=== PATIENT | male | born 1990 | race American Indian/Alaskan Native ===

== ENCOUNTER 2019-10-14 07:50 | Emergency (ER) | payer SELFPAY ==
[2019-10-14 07:57] VITALS: BP 112/68
[2019-10-14] MEDS ORDERED: IBUPROFEN 600 MG TAB PO ONE (08:46)
--- NOTE | 2019-10-14 08:49 | Emergency Department Report ---
ED Male HPI - General Chief complaint: Urogenital-Male Stated complaint: TESTICULAR PAIN Time Seen by Provider: 10/14/19 08:44 Source: patient Mode of arrival: Ambulatory Limitations: No Limitations - History of Present Illness Initial comments: 28-year-old -[place] male presents to the emergency room complaining of right testicular pain for 2 days. Patient denies any fever patient denies any dysuria patient denies any hematuria patient denies any discharge. Patient has a past medical history of sickle cell disease surgical history is appendectomy and cholecystectomy. Patient reports this pain is a 7 out of 10. Patient is allergic to morphine. MD Complaint: testicle pain Onset/Timin -: days(s) Location: right testicle Severity scale (0 -10): 7 Consistency: intermittent Improves with: rest Worsens with: palpation, movement mass (Testicle right) - Related Data Allergies Allergy/AdvReac Type Severity Reaction Status Date / Time morphine Allergy Rash Verified 10/14/19 07:57 ED Review of Systems ROS: Stated complaint: TESTICULAR PAIN Other details as noted in HPI ED Past Medical Hx - Past Medical History Previous Medical History?: Yes Hx Sickle Cell Disease: Yes - Surgical History Past Surgical History?: Yes Hx Cholecystectomy: Yes Hx Appendectomy: Yes - Social History Smoking Status: Current Every Day Smoker Substance Use Type: Alcohol, Marijuana ED Physical Exam - General Limitations: No Limitations ED Course Vital Signs 10/14/19 10/14/19 07:52 08:52 Temperature 98 F Pulse Rate 77 Respiratory 16 16 Rate Blood Pressure 112/68 O2 Sat by Pulse 93 Oximetry ED Medical Decision Making - Medical Decision Making 28-year-old -[place] male presents to the emergency room complaining of right testicular pain for 2 days. Patient denies any fever patient denies any dysuria patient denies any hematuria patient denies any discharge. Patient has a past medical history of sickle cell disease surgical history is appendectomy and cholecystectomy. Patient reports this pain is a 7 out of 10. Patient is allergic to morphine. UA, chlamydia and gonorrhea sent. Ultrasound complete for testicles. Ibuprofen given for pain management. Ultrasound shows that patient has a right epididymal masses. We will treat for gonorrhea and chlamydia. Critical care attestation.: If time is entered above; I have spent that time in minutes in the direct care o f this critically ill patient, excluding procedure time. ED Disposition Clinical Impression: Epididymitis, right, STD (male) Disposition: DC-01 TO HOME OR SELFCARE Is pt being admited?: No Does the pt Need Aspirin: No Condition: Stable Instructions: Epididymitis (ED), Sexually Transmitted Diseases (ED) Additional Instructions: Ultrasound shows that you have epididymitis which is an infection of the te sticle most commonly from gonorrhea and chlamydia. You have been treated for gonorrhea and chlamydia I highly recommend for you to follow-up at the [facility] for further STD checks. You can take ibuprofen for pain management I recommend to wear a jockstrap or pair of tight underwear to help with the testicles moving which can cause increased pain. Referrals: PRIMARY CARE, [Primary Care Provider] - 3-5 Days [facility] [Outside] - 3-5 Days [facility] [Outside] - 3-5 Days [facility] [place]Note 3[facility] [Outside] - 3-5 Days Forms: STI Treatment and Prevention
[2019-10-14 09:12] LABS: Bilirubin,Urine NEG (Negative); Blood,Urine NEG (Negative); Color,Urine Yellow (Yellow); Protein,Urine <15 mg/dL mg/dL (Negative)
--- NOTE | 2019-10-14 09:58 | Ultrasound Report ---
ULTRASOUND SCROTUM INDICATION: rt firm mass with tenderness. COMPARISON None available. FINDINGS -- RIGHT TESTIS: Size: 3.6 x 1.9 x 2.9 cm. Echotexture: Normal. Color Doppler Flow: Normal. Lesions: None. EPIDIDYMIS: Size: Normal. Echotexture: Normal. Color Doppler Flow: Increased Lesions: None. Hydrocele: None. Varicocele: None. Additional Findings: None. FINDINGS -- LEFT TESTIS: Size: 4.5 x 1.4 x 4.0 cm. Echotexture: Normal. Color Doppler Flow: Normal. Lesions: None. EPIDIDYMIS: Size: Normal. Echotexture: Normal. Color Doppler Flow: Normal. Lesions: None. Hydrocele: None. Varicocele: None. Additional Findings: None. IMPRESSION: 1. Right-sided epididymitis. Signer Name: Jim Herrera MD Signed: 10/14/2019 9:53 AM Workstation Name: [id number]
[2019-10-14] MEDS ORDERED: AZITHROMYCIN 250 MG TAB PO ONE (10:00)
[2019-10-14] MEDS ORDERED: LIDOCAINE-MPF (1%) 10 MG/1 ML VIAL 5 ML INFILTRATI ONE (10:00)
== END 2019-10-14 10:44 | disposition home or self-care (01) ==
LOC: ED 07:50
DX: N45.1 Epididymitis (principal); A64 Unspecified sexually transmitted disease; Z90.49 Acquired absence of other specified parts of digestive tract; Z79.899 Other long term (current) drug therapy; Z88.6 Allergy status to analgesic agent
CPT/HCPCS: 81001; 87086; 87591; 93975; 96372; 99284; J0696